=== PATIENT | male | born 1990 | race Caucasian/White ===

== ENCOUNTER 2020-09-30 20:16 | Emergency (ER) | payer OTHER ==
[2020-09-30 21:09] LABS: BASOPHIL 0.5 % (0-2); EOSINOPHIL 0.8 % (0-5); HCT 46.7 % (42.0-52.0); HGB 15.5 g/dl (13.2-18.0); LYMPHOCYTE 28.5 % (15-48); MCH 28.9 pg (25.0-31.0); MCHC 33.2 g/dL (32.0-36.0); MPV 9.6 fL (6.0-9.5); NEUTROPHIL 62.9 % (41-80); NRBC 0; PLT 310 K/uL (150-400); RBC 5.37 M/uL (4.70-6.00); RDW 13.6 % (11.5-14.0); WBC 9.3 K/uL (4.0-10.5)
[2020-09-30 21:33] LABS: ALBUMIN 4.4 g/dL (3.4-5.0); BILIRUBIN - TOTAL 0.6 mg/dL (0.2-1.0); GLOBULIN (CALCULATION) 3.5 g/dL; POTASSIUM 4.4 mmol/L (3.5-5.1); TOTAL PROTEIN 7.9 g/dL (6.4-8.2)
== END 2020-09-30 23:00 | disposition home or self-care (01) ==
LOC: FER 20:16
PROVIDERS: Nurse Practitioner Family
DX: R07.89 Other chest pain (principal)
CPT/HCPCS: 36415; 71046; 80053; 84484; 85025; 93005; J7030